=== PATIENT | male | born 1955 | race Caucasian/White ===

== ENCOUNTER → 2019-08-13 09:52 | Outpatient (CLI) | payer BC, SELFPAY | PROVIDERS: PCP Family Medicine; Visit Provider Urology | DX: R00.2 Palpitations (principal); R06.09 Other forms of dyspnea; I11.0 Hypertensive heart disease with heart failure; I25.10 Atherosclerotic heart disease of native coronary artery without angina pectoris; I35.9 Nonrheumatic aortic valve disorder, unspecified; I48.0 Paroxysmal atrial fibrillation; E66.09 Other obesity due to excess calories; I65.23 Occlusion and stenosis of bilateral carotid arteries; E78.49 Other hyperlipidemia; E11.9 Type 2 diabetes mellitus without complications; Z79.84 Long term (current) use of oral hypoglycemic drugs | CPT/HCPCS: 93270 ==

== ENCOUNTER → 2020-04-22 09:17 | Outpatient (CLI) | payer MEDICARE, OTHER, SELFPAY ==
--- NOTE | 2020-04-22 09:17 | CA_ITS ---
APPROVED REPORT Release Of Information Clerk: CT Laterality: Bilateral Indications: KITTY Risk Factors Hypertension: Hyperlipidemia Diabetes Doppler Spectral Velocity Analysis ECA (R) 100.30/12.70 cm/s ECA (L) 117.50/20.20 cm/s dICA (R) 85.30/26.90 cm/s dICA (L) 115.70/37.70 cm/s Tramaine (R) 82.30/23.20 cm/s Tramaine (L) 120.80/39.40 cm/s pICA (R) 107.00/23.90 cm/s pICA (L) 74.50/19.70 cm/s dCCA (R) 71.30/15.40 cm/s dCCA (L) 82.80/21.20 cm/s pCCA (R) 141.60/12.50 cm/s pCCA (L) 143.50/28.90 cm/s Vert (R) 35.80/8.00 cm/s Vert (L) 39.70/11.20 cm/s ICA/CCA 1.50 ICA/CCA 1.50 Findings Duplex evaluation demonstrates stenosis of the right proximal internal carotid artery in the range of 20-49%, lower end of scale. Duplex evaluation demonstrates stenosis of the left proximal internal carotid artery in the range of 20-49%, lower end of scale. Duplex evaluation demonstrates antegrade flow of the bilateral Vertebral Arteries. Conclusion Duplex evaluation demonstrates stenosis of the right proximal internal carotid artery in the range of 20-49%, lower end of scale. Duplex evaluation demonstrates stenosis of the left proximal internal carotid artery in the range of 20-49%, lower end of scale. Duplex evaluation demonstrates antegrade flow of the bilateral Vertebral Arteries. Electronically signed by : Otilio Leyva MD 04/22/2020 17:04:57
== END ==
PROVIDERS: PCP Family Medicine; Visit Provider Urology
DX: I65.23 Occlusion and stenosis of bilateral carotid arteries (principal)
CPT/HCPCS: 93880

== ENCOUNTER → 2021-06-09 10:16 | Outpatient (CLI) | payer MEDICARE, OTHER, SELFPAY ==
--- NOTE | 2021-06-09 | CA_ITS ---
APPROVED REPORT Turner In: RENZO Laterality: Bilateral Study Quality: Good Indications: Hx-Afib s/p ablation, Family Hx- Carotid stenosis. Risk Factors Hypertension: Hyperlipidemia Doppler Spectral Velocity Analysis ECA (R) 120.80/14.60 cm/s ECA (L) 152.90/22.50 cm/s dICA (R) 107.10/32.60 cm/s dICA (L) 113.30/41.70 cm/s Tramaine (R) 119.10/25.70 cm/s Tramaine (L) 100.50/32.10 cm/s pICA (R) 92.50/20.60 cm/s pICA (L) 90.90/16.00 cm/s dCCA (R) 89.30/18.00 cm/s dCCA (L) 86.60/23.50 cm/s pCCA (R) 86.70/18.00 cm/s pCCA (L) 113.30/113.30 cm/s Vert (R) 30.00/0.00 cm/s Vert (L) 32.20/7.50 cm/s ICA/CCA 1.24 ICA/CCA 1.31 Findings Duplex evaluation demonstrates antegrade flow of the bilateral Vertebral Arteries. Duplex evaluation demonstrates stenosis of the right proximal internal carotid artery in the range of 20-49% with PSV <140 cm/sec. Duplex evaluation demonstrates stenosis of the left proximal internal carotid artery in the range of 20-49% with PSV <140 cm/sec. Conclusion Duplex evaluation demonstrates antegrade flow of the bilateral Vertebral Arteries. Duplex evaluation demonstrates stenosis of the right proximal internal carotid artery in the range of 20-49% with PSV <140 cm/sec. Duplex evaluation demonstrates stenosis of the left proximal internal carotid artery in the range of 20-49% with PSV <140 cm/sec. Electronically signed by : Otilio Leyva MD 06/09/2021 17:40:59
== END ==
PROVIDERS: PCP Family Medicine; Visit Provider Urology
DX: I65.23 Occlusion and stenosis of bilateral carotid arteries (principal)
CPT/HCPCS: 93880

== ENCOUNTER → 2022-08-25 11:32 | Outpatient (CLI) | payer MEDICARE, OTHER, SELFPAY ==
--- NOTE | 2022-08-25 11:32 | NM_ITS ---
APPROVED REPORT Exam: Nuclear Stress Test Indication: SOB, CAD, Hx of LA, HTN, DM, High cholesterol, Tobacco use, Family history Patient Location: Outpatient Stress Tech: Juliann Alfaro NH Tech:Soledad Salazar, ARRT RT(R)(N) Ht: 6 ft 0 in Wt: 265 lbs HR: 74 bpm BP: 143/72 mmHg BSA: 2.40 m2 TID: 1.17 History: SOB, CAD, Hx of LA, HTN, DM, High cholesterol, Tobacco use, Family history Procedure: Patient exercised on Barrett protocol 6:01 minutes and sec, resting heart rate 74 bpm, resting blood pressure 143/72 mmHg, with exercise maximum heart rate achived was 149 bpm which is 97 % of the maximum predicted heart rate and blood pressure was 183/86 mmHg. Test was stopped due to SOB. Patient denied any complaint of chest pain. Patient has Poor exercise capacity, achieved 5.7 METs of workload on treadmill, the blood pressure response to exercise was Adequate. Electrocardiogram Resting electrocardiogram shows sinus rhythm, with exercise there is 1.[address] segment depression noted from the baseline EKG. The EKG portion of the exercise Myoview is positive for ischemia. Cardiac Stress and Resting SPECT Images: Cardiac Stress and Resting SPECT images were obtained using technetium 99m Myoview 32.9 mCi stress and 10.71 mCi at rest. Gated SPECT for analysis of segmental wall motion and calculation of the ejection fraction also done. Prone images were also obtained. Cardiac stress and rest SPECT may show uniform myocardial activity without segmental perfusion abnormality, computer derived ejection fraction is 59% with no regional wall motion abnormality, right ventricle is normal size and contractility. Conclusion: 1. The EKG portion of the exercise Myoview is positive for ischemia, patient has poor exercise capacity achieved 5.7 METS of workload on treadmill, the blood pressure response to exercise was adequate, there was no exercise-induced chest discomfort. 2. No scintigraphic evidence of reversible ischemia seen, computer derived ejection fraction 59% with no regional wall motion abnormality, right ventricle is normal size and contractility. Electronically signed by : Papito Naylor MD 08/26/2022 12:55:08
--- NOTE | 2022-08-25 11:34 | CA_ITS ---
APPROVED REPORT Exam: Exercise Treadmill Technologist: Juliann Bradley, Ht: 6 ft 0 in Wt: 268 lbs BSA: 2.41 m2 HR: 61 bpm BP: 156/73 mmHg Indications: SOA Medical History Medications: Lisinopril,,,,, Metformin,,,,, Pantoprazole,,,,, Atorvastatin,,,,, HCTZ,,,,, Carvedilol,,,,, XaRELTO,,,,, Plavix,,,,, Nitroglycerin,,,,, DilTiazem,,,,, Stress Test Details Test: Manual Treadmill HR Resting HR: 74 bpm Max Heart Rate (APMHR): 153.380384 bpm Max HR Achieved: 149 bpm Target HR (85% APMHR): 130.583946 bpm % of APMHR: 97.39 Recovery HR: 90 bpm BP Resting BP: 143/72 mmHg Max BP: 183/86 mmHg Recovery BP: 153.0/75.0 mmHg ECG Resting ECG: NSR, T wave abn in leads III & aVF, PVC Clinical Exercise duration: 06:01 min Highest Stage Achieved: Exercise capacity: 5.7 METs Stress ECG Conclusion Exercised 6:00 total, 3 mins in stage I chace then 3 mins in manual protocol. Max speed 2.4 mph, max incline 10%. Max HR: 145 % of PM: 95% Max BP: 183/86 METs: 5.7 Test stopped due to: SOA Symptoms: No CP. Arrhythmias/Ectopy: Occ PAC & PVC. ST-T Changes: 1-2mm of anterolateral, upslping ST depression. Conclusion: EKG changes (+) for ischemia. Myoview images reported separately. Test Summary REST . . . . . . . Sitting REST . . . . . . . Standing REST 06:12 0.0 0.0 74 . 143/ 72 . . Stage 1 01:00 10.0 1.7 111 . . . . Stage 1 02:00 10.0 1.7 127 . . . . Stage 1 . . . . . . . Stage held Stage 1 03:00 10.0 1.7 133 . 180/ 82 . . Stage 1 . . . . . . . Protocol changed to Manual Treadmill Stage 1 04:00 10.0 2.0 140 . 180/ 82 . . Stage 1 05:00 10.0 2.2 143 . 180/ 82 . . Stage 1 06:00 10.0 2.4 145 . 180/ 82 . . Stage 1 . . . . . . . Stage resumed Stage 1 06:01 10.0 2.4 149 . 180/ 82 . Stop exercise at 06:01 RECOVERY 01:00 0.0 0.0 126 . . . . RECOVERY 02:00 0.0 0.0 95 . 183/ 86 . . RECOVERY 03:00 0.0 0.0 85 . 183/ 86 . . RECOVERY 04:00 0.0 0.0 84 . 170/ 79 . . RECOVERY 05:00 0.0 0.0 91 . 153/ 75 . . RECOVERY 06:00 0.0 0.0 85 . 153/ 75 . . RECOVERY 07:00 0.0 0.0 84 . 153/ 75 . . RECOVERY 07:19 0.0 0.0 88 . 153/ 75 . . Electronically signed by : Papito Naylor MD 08/26/2022 12:51:53
--- NOTE | 2022-08-25 11:35 | CA_ITS ---
APPROVED REPORT EXAM: Comprehensive 2D, Doppler, and color-flow Echocardiogram Explosive Ordnance Specialist: Gretel Davis RT(R) Ht: 6 ft 0 in Wt: 263lbs BSA: 2.39 BP: 141/77 mmHg Indications: dyspnea, CAD, HTN, hyperlipidemia, AV disorder, AFIB 2D Dimensions LVOT 2.03 cm (M/F) 1.5-2.5 LA Volume 26.00 mL LA Volume Index 10.88 mL/m2 (M/F) 16-34 M-Mode Dimensions RVDd 3.40 cm (0.9-2.6) LA Diam 5.11 cm (1.9-4.0) LVDd 4.43 cm (3.5-5.7) Ao Diam 2.11 cm (2.0-3.7) LVDs 3.31 cm (3.5-5.7) IVSd 1.03 cm (0.6-1.1) PWd 0.85 cm (0.6-1.1) EF (Teich) 50.10% FS 25.30% EDV (Teich) 89.10 mL ESV (Teich) 44.50 mL LV Diastology E Decel Time 223.00 (160-240 msec) E/A Ratio 1.4 MED E' 8.90 (< 7 cm/sec) E'/MED E' Ratio 11.47 (>14) LAT E' 11.00 (<10 cm/sec) E/LAT E' Ratio 9.28 (>14) Aortic Valve LVOT Max 101.00 (70-110 cm/s) LVOT VTI 22.81 cm AoV Peak Nate. 308.00 (50-130 cm/s) AO Peak GR. 38.10 mmHg AO Mean GR. 18.80 (<5 mmHg) AO VTI 59.70 (18-25 cm) SHAYY (VTI) 1.24 (2.5-4.5 cm2) Mitral Valve MV E Max Nate. 102.00 (40-130 cm/s) MV A Velocity 73.00 (40-130 cm/s) E/A Ratio 1.40 MV Decel. Time 223.00 (160-240 ms) MV PHT 65.00 ms Left Ventricle Left atrium is mildly enlarged, left ventricle is normal size, mild concentric left ventricular hypertrophy, estimated ejection fraction 55% with no regional wall motion abnormality, diastolic parameters are inconclusive. Right Ventricle Right atrium and right ventricular normal size and contractility. Aortic Valve Aortic valve is thickened and calcified, the mean gradient across aortic valve is 21 mmHg, the valve area is 1.2 cm represents moderate aortic stenosis, there is no significant aortic insufficiency. Mitral Valve Mitral valve has mitral calcification, leaflets are minimally thickened, there is no mitral stenosis, there is mild mitral regurgitation. Tricuspid Valve Tricuspid valve is grossly normal, there is mild tricuspid regurgitation, tricuspid regurgitation jet velocity is inadequate for calculation of the right ventricular systolic pressure. Pulmonic Valve Pulmonic valve is poorly visualized. Great Vessels Aortic root is normal size. Pericardium No significant pericardial effusion noted. Inferior vena cava is poorly visualized. Conclusion 1. Mildly enlarged left atrium, normal left ventricular size, mild concentric left ventricular hypertrophy, estimated ejection fraction 55% with no regional wall motion abnormality, diastolic parameters are inconclusive. 2. Thickened and calcified aortic valve with moderate aortic stenosis, valve area is 1.2 cm???. There is no significant aortic insufficiency. 3. Mild mitral and tricuspid regurgitation. 4. No significant pericardial effusion. 5. Inferior vena cava is poorly visualized. Electronically signed by : Papito Naylor MD 08/26/2022 14:53:07
--- NOTE | 2022-08-25 11:35 | CA_ITS ---
FINAL REPORT TECHNIQUE: Queen scale, color and spectral doppler images of the bilateral carotid arteries were obtained. CLINICAL HISTORY: KITTY,HTN,HLD FINDINGS: Peak systolic velocity in the right internal carotid artery is 97 cm/sec. The internal carotid to common carotid artery ratio is is 1.1. There is no significant carotid artery stenosis and no significant plaque formation. The right vertebral artery is normal in direction. Peak systolic velocity in the left internal carotid artery is 106 cm/sec. The internal carotid to common carotid artery ratio is 1.3. There is no significant carotid artery stenosis and no significant plaque formation. The left vertebral artery is normal in direction. IMPRESSION: Less than 50% bilateral carotid artery stenosis. Normal peak systolic velocities and normal internal to common carotid artery ratios bilaterally. Reviewed, Interpreted and Dictated by Lalitha Iniguez MD Transcribed by Anuradha Key Authenticated and [facility]
== END ==
PROVIDERS: PCP Family Medicine; Visit Provider Nurse Practitioner Family
DX: E78.2 Mixed hyperlipidemia (principal); I11.0 Hypertensive heart disease with heart failure; I25.10 Atherosclerotic heart disease of native coronary artery without angina pectoris; I35.9 Nonrheumatic aortic valve disorder, unspecified; I48.0 Paroxysmal atrial fibrillation; I65.23 Occlusion and stenosis of bilateral carotid arteries; R06.09 Other forms of dyspnea
CPT/HCPCS: 78452; 93017; 93306; 93880; A9502